=== PATIENT | male | born 1990 | race Caucasian/White ===

== ENCOUNTER 2017-03-06 04:31 | Emergency (ER) | payer SELFPAY ==
[~2017-03-06] VITALS: Ht 170.2 cm; Wt 91.5 kg
[2017-03-06 04:34] VITALS: TEMP 36.5; Ht 170.2 cm; Wt 91.5 kg
--- NOTE | 2017-03-06 05:04 | EMERGENCY ROOM VISIT NOTE ---
History Report prepared by Altagracia: Rayshawn Lindo Under the Supervision of: Dr. Amber Goldman D.O. First contact with patient: 04:43 Chief Complaint: CHEST PAIN Stated Complaint: CHEST PAIN,RAPID HEART RATE,BACK PAIN,HIGH BP History of Present Illness The patient is a 26 year old male who presents to the Emergency Room with complaints of a rapid heart beat that began a few hours prior to arrival. The patient states that he began to feel his heart racing when he laid down to go to sleep tonight. He also complains of a "stabbing" pain between his left shoulder blade and spine. The patient denies any shortness of breath, diaphoresis, or vomiting. He does admit to experiencing some stress at work recently, but denies any history of anxiety or common heart palpitations. He is still experiencing his back pain at this time. 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 A total of 10 systems reviewed and were otherwise negative. Past Medical & Surgical Medical Problems: (1) Trigger finger Family History Patient has no knowledge of family history secondary to closed adoption. Social History Smoking Status: Never Smoker Alcohol Use: heavy Drug Use: none Housing Status: lives with significant other Occupation Status: employed Current/Historical Medications No Active Prescriptions or Reported Meds Allergies Coded Allergies: No Known Allergies (Unverified , 03/06/17) Physical Exam Vital Signs Date Time Temp Pulse Resp B/P Pulse Ox O2 Delivery O2 Flow Rate FiO2 03/06/17 05:31 93 19 151/95 96 Room Air 03/06/17 04:50 Room Air 03/06/17 04:47 108 03/06/17 04:34 36.5 110 20 163/112 97 Room Air Physical Exam HEENT: Head - normocephalic and atraumatic Pupils are equal, round, and reactive to light. Extraocular eye muscles are intact, and sclera are anicteric. Nose - moist nasal mucosa without discharge. Mouth - moist buccal mucosa. Oropharynx is nonerythematous and there is no tonsillar exudate or edema noted. Neck: Supple; no JVD, nuchal rigidity, cervical lymphadenopathy. Heart: Tachycardiac rate and rhythm. There is a normal S1 and S2 with no murmurs, clicks, or gallops appreciated. Lungs: Clear to auscultation bilaterally with no wheezes, rales, or rhonchi. Abdomen: Soft, completely nontender, nondistended, with good bowel sounds. There are no palpable pulsatile masses or hepatosplenomegaly. There is no guarding, rigidity, or rebound noted. Back: There is moderate muscle spasms of the thoracic paraspinous muscles. No skin lesions. Extremities: Moderate trapezius muscle spasm bilaterally. No evidence of cyanosis, clubbing, or edema. There are easily palpable peripheral pulses. Skin: warm and dry with good turgor and no rashes. Medical Decision & Procedures ER Provider Diagnostic Interpretation: X-ray results as stated below per interpretation by me and the radiologist: CHEST X-RAY: Borderline cardiomegaly. No pulmonary infiltrates or pleural effusions. Laboratory Results 03/06/17 04:45 Red Blood Count 5.18, Mean Corpuscular Volume 88.2, Mean Corpuscular Hemoglobin 33.4, Mean Corpuscular Hemoglobin Concent 37.9, Mean Platelet Volume 9.9 03/06/17 04:45 Test 03/06/17 04:45 White Blood Count 8.94 K/uL (4.8-10.8) Red Blood Count 5.18 M/uL (4.7-6.1) Hemoglobin 17.3 g/dL (14.0-18.0) Hematocrit 45.7 % (42-52) Mean Corpuscular Volume 88.2 fL (80-100) Mean Corpuscular Hemoglobin 33.4 pg (25-34) Mean Corpuscular Hemoglobin Concent 37.9 g/dl (32-36) Platelet Count 168 K/uL (130-400) Mean Platelet Volume 9.9 fL (7.4-10.4) RDW Standard Deviation 37.9 fL (36.4-46.3) RDW Coefficient of Variation 11.9 % (11.5-14.5) D-Dimer < 190 ug/L FEU (0-500) Anion Gap 10.0 mmol/L (3-11) Est Creatinine Clear Calc Drug Dose 135.7 ml/min Estimated GFR () 136.8 Estimated GFR (Non- 118.0 BUN/Creatinine Ratio 9.0 (10-20) Calcium Level 8.9 mg/dl (8.5-10.1) Total Bilirubin 0.3 mg/dl (0.2-1) Direct Bilirubin < 0.1 mg/dl (0-0.2) Aspartate Amino Transf (AST/SGOT) 58 U/L (15-37) Alanine Aminotransferase (ALT/SGPT) 163 U/L (12-78) Alkaline Phosphatase 95 U/L (45-117) Total Creatine Kinase 62 U/L (39-308) Creatine Kinase MB 0.6 ng/ml (0.5-3.6) Creatine Kinase MB Ratio 1.0 (0-3.0) Troponin I < 0.015 ng/ml (0-0.045) Total Protein 8.2 gm/dl (6.4-8.2) Albumin 4.2 gm/dl (3.4-5.0) Lipase 241 U/L (73-393) Laboratory results per my review. Procedure Echocardiogram: Pending ECG Indication: chest pain, palpitations Rate (beats per minute): 111 Rhythm: sinus tachycardia Findings: no acute ischemic change, no ectopy ED Course 0447: Past medical records reviewed. The patient was evaluated in room B3. A complete history and physical exam was performed. A twelve-lead EKG was obtained as described above. The patient was observed on spray painter helper and pulse oximeter. Labs were drawn as above. 0550: I checked on the patient at this time. He is feeling much better and his blood pressure is down. 0614: Upon reevaluation, the patient is feeling well and his blood pressure is stable. Case management has provided the patient with information on CVIM. 0621: After further discussion, the patient would not meet eligibility CVIM. The patient will remain a patient and have an Echocardiogram performed here today. The patient will be signed out to Dr. Ocampo at change of shift at 06: 30. Medical Decision This patient is a 26 year old male who presents to the emergency department for rapid heart rate and back pain. Differential diagnosis includes; pulmonary embolism, cardiac ischemia, pancreatitis, cardiomyopathy, aortic dissection, muscle tension, and anxiety. Laboratory studies were reviewed and show; Normal white count, stable hemoglobin and hematocrit, normal renal function, negative cardiac enzymes, normal lipase, glucose of 102, AST of 58, ALT of 163, and D-Dimer less than 190. The patient feels much better and more relaxed. Heart rate has come down. Blood pressure has come down. The case will be signed out to Dr. Ocampo awaiting echocardiogram. Impression Primary Impression: Palpitations Additional Impression: Atypical chest pain Scribe Attestation The scribe's documentation has been prepared under my direction and personally reviewed by me in its entirety. I confirm that the note above accurately reflects all work, treatment, procedures, and medical decision making performed by me. Departure Information Dispostion Still a Patient (Patient will be signed out to Dr. Herrera at change of shift. ) Prescriptions No Active Prescriptions or Reported Meds Referrals No Doctor, Assigned (PCP) Patient Instructions My [facility] Problem Qualifiers
[2017-03-06 05:08] LABS: HEMATOCRIT 45.7 % (42-52); MEAN CELL VOLUME 88.2 fL (80-100); MEAN CORPUSCULAR HEMOGLOBIN 33.4 pg (25-34); MEAN CORPUSCULAR HGB CONC 37.9 g/dl (32-36); MEAN PLATELET VOLUME 9.9 fL (7.4-10.4); PLATELET COUNT 168 K/uL (130-400); RED BLOOD COUNT 5.18 M/uL (4.7-6.1); WHITE BLOOD COUNT 8.94 K/uL (4.8-10.8)
[2017-03-06 05:26] LABS: ALT/SGPT 163 U/L (12-78); AST/SGOT 58 U/L (15-37); BLOOD UREA NITROGEN 8 mg/dl (7-18); CALCIUM 8.9 mg/dl (8.5-10.1); CARBON DIOXIDE 25 mmol/L (21-32); CHLORIDE 107 mmol/L (98-107); CREATININE 0.89 mg/dl (0.60-1.40); GLUCOSE 102 mg/dl (70-99); POTASSIUM 3.4 mmol/L (3.5-5.1); SODIUM 142 mmol/L (136-145)
[2017-03-06 05:31] LABS: ALKALINE PHOSPHATASE 95 U/L (45-117)
--- NOTE | 2017-03-06 06:44 | DIAGNOSTIC IMAGING REPORT ---
CHEST ONE VIEW PORTABLE CLINICAL HISTORY: Atypical chest pain COMPARISON STUDY: No previous studies for comparison. FINDINGS: The cardiac and mediastinal contours are normal. There is no evidence of focal pulmonary consolidation. There is no evidence of failure. No pleural effusions are visualized.[ IMPRESSION: No active disease in the chest. Electronically signed by: Oniel Toth M.D. 03/06/2017 6:43 AM Dictated Date/Time: 03/06/2017 6:43 AM
[2017-03-06 07:01] LABS: COMPLETE YES; EOSINOPHIL % 3.5 %; LARGE GRANULAR LYMPH ABSOLUTE 1.02 K/uL; LARGE GRANULAR LYMPHOCYTE % 11.4 %; LYMPH ABS # 3.29 K/uL (1.2-3.4); LYMPHOCYTE % 36.8 %; NEUTROPHILS % 40.4 %; VARIANT LYM ABS # 0.39 K/uL; VARIANT LYMPHOCYTE % 4.4 %
[2017-03-06] MEDS ORDERED: OPTIRAY 320 IV PRN (09:00)
--- NOTE | 2017-03-06 09:21 | DIAGNOSTIC IMAGING REPORT ---
Study: CT chest combination HISTORY: Chest pain. Cardiac arrhythmia. FINDINGS: Thoracic aorta is normal in course and caliber. There is no evidence for aneurysm or dissection. No significant mediastinal or hilar adenopathy. Lungs are clear. IMPRESSION: Negative thoracic aorta. 2. Lungs are clear. Electronically signed by: Judson Manrique M.D. 03/06/2017 9:20 AM Dictated Date/Time: 03/06/2017 9:17 AM
--- NOTE | 2017-03-06 09:42 | EMERGENCY ROOM VISIT NOTE ---
ED Visit Note This is a 26-year-old male who was signed out to me awaiting an echocardiogram. Echocardiogram was essentially normal although there was an abnormality visualized in the aortic root. Dr. Herrera recommended a CT scan of the aorta. This was performed and did not show any abnormality. The patient was told the results. He was felt to be stable for discharge and outpatient follow-up. He was given a GI cocktail prior to DC.
[2017-03-06] MEDS ORDERED: ALUMINUM/MAGNESIUM SUSP 30 ML UDC PO STA (09:49)
[2017-03-06] MEDS ORDERED: LIDOCAINE HCL 2% VISC SOLN 20 ML UDC PO STA (09:49)
[2017-03-06 09:50] VITALS: BP 150/90; PULSE 88; O2SAT 99
--- NOTE | 2017-03-06 09:56 | ECHOCARDIOGRAM REPORT ---
*NOTICE TO RECEIVING LIBERTARIAN AGENCY This information is strictly Confidential and protected under [place] law. [place] law prohibits you from making any further disclosure of this information unless further disclosure is expressly permitted by the written consent of the person to whom it pertains or is authorized by law. A general authorization for the release of medical or other information is not sufficient for this purpose. Hospital accepts no responsibility if the information is made available to any other person, INCLUDING THE PATIENT. Interpretation Summary * Name: ABHISHEK STORM Study Date: 03/06/2017 06:37 AM BP: 137/91 mmHg * Patient Location: .ED HR: 86 * : 1990 (M/d/yyyy) Gender: Male Height: 57 in * Age: 26 yrs Ethnicity: CA Weight: 201 lb * Ordering Physician: SAMSON CHEN DO * Performed By: Enid Beltran RCS * * Reason For Study: R/O CARDIOMEGALY / CHEST PAIN / BACK PAIN * BSA: 1.8 m2 * -- Conclusions -- * Left ventricular systolic function is normal. * No regional wall motion abnormalities noted. * Ejection Fraction = 55-60%. * There is borderline concentric left ventricular hypertrophy. * Dissection of the ascending thoracic aorta cannot be excluded. * Recommend CT scan of chest. Procedure Details * A complete two-dimensional transthoracic echocardiogram was performed (2D, M-mode, Doppler and color flow Doppler). Left Ventricle * The left ventricle is normal in size. * There is borderline concentric left ventricular hypertrophy. * Ejection Fraction = 55-60%. * Left ventricular systolic function is normal. * No regional wall motion abnormalities noted. Right Ventricle * The right ventricle is normal size. * The right ventricular systolic function is normal as assessed by tricuspid annular plane systolic excursion (TAPSE) (normal >1.5 cm). Atria * The left atrium is mildly dilated. * Right atrial size is normal. * There is no evidence of atrial septal defect, but resolution does not allow assessment for a patent foramen ovale. Mitral Valve * The mitral valve anatomy is normal. * There is no mitral valve stenosis. * Significant mitral regurgitation is absent. Tricuspid Valve * The tricuspid valve is not well visualized, but is grossly normal. * There is no tricuspid stenosis. * Significant tricuspid regurgitation is absent. Aortic Valve * The aortic valve is normal in structure and function. * No hemodynamically significant valvular aortic stenosis. * No aortic regurgitation is present. Pulmonic Valve * The pulmonic valve is not well visualized. Great Vessels * Borderline aortic root dilatation. * Dissection of the ascending thoracic aorta cannot be excluded. Pericardium/Pleural * There is no pericardial effusion. MMode 2D Measurements and Calculations Ao root diam 4.0 cm Ao root area 12.8 cm\S\2 LA dimension 3.0 cm LA/Ao 0.73 LVAd ap4 31.7 cm\S\2 LVLd ap4 7.9 cm EDV(MOD-sp4) 104.4 ml EDV(sp4-el) 108.7 ml LVAs ap4 20.5 cm\S\2 LVLs ap4 6.6 cm ESV(MOD-sp4) 52.6 ml ESV(sp4-el) 53.7 ml EF(MOD-sp4) 49.6 % EF(sp4-el) 50.6 % LVAd ap2 27.7 cm\S\2 LVLd ap2 8.1 cm EDV(MOD-sp2) 76.9 ml EDV(sp2-el) 80.5 ml LVAs ap2 15.8 cm\S\2 LVLs ap2 6.1 cm ESV(MOD-sp2) 34.5 ml ESV(sp2-el) 34.9 ml EF(MOD-sp2) 55.1 % EF(sp2-el) 56.6 % LVLd %diff 2.7 % EDV(MOD-bp) 89.4 ml LVLs %diff -8.87 % ESV(MOD-bp) 44.5 ml EF(MOD-bp) 50.2 % SV(MOD-sp4) 51.8 ml SI(MOD-sp4) 28.7 ml/m\S\2 SV(MOD-sp2) 42.4 ml SI(MOD-sp2) 23.5 ml/m\S\2 SV(MOD-bp) 44.9 ml SI(MOD-bp) 24.9 ml/m\S\2 SV(sp4-el) 54.9 ml SI(sp4-el) 30.5 ml/m\S\2 SV(sp2-el) 45.6 ml SI(sp2-el) 25.3 ml/m\S\2 Doppler Measurements and Calculations MV E max seda 62.6 cm/sec MV A max seda 62.0 cm/sec MV E/A 1.0 MV P1/2t max seda 81.1 cm/sec MV P1/2t 75.4 msec MVA(P1/2t) 2.9 cm\S\2 MV dec slope 315.1 cm/sec\S\2 MV dec time 0.23 sec Ao V2 max 93.3 cm/sec Ao max PG 3.5 mmHg Ao max PG (full) 0.96 mmHg LV V1 max PG 2.5 mmHg LV V1 max 79.5 cm/sec PA V2 max 82.4 cm/sec PA max PG 2.7 mmHg
== END 2017-03-06 09:52 | disposition home or self-care (01) ==
LOC: C.EDB 04:34
DX: R00.2 Palpitations (principal); R07.89 Other chest pain; M54.9 Dorsalgia, unspecified; F10.10 Alcohol abuse, uncomplicated